=== PATIENT | male | born 1995 | race African-American/Black ===

== ENCOUNTER 2018-03-22 22:26 | Inpatient (IN) | payer OTHER ==
[~2018-03-22] VITALS: Ht 185.4 cm; Wt 72.6 kg
[2018-03-22 22:33] VITALS: BP 112/80
[2018-03-22 23:14] LABS: ABSOLUTE NEUTROPHILS 11.3 thou/uL (1.4-8.2); BASOPHILS 0.4 % (0.0-2.0); EOSINOPHILS 0.1 % (0.0-3.0); HEMATOCRIT 44.4 % (42.0-52.0); HEMOGLOBIN 14.9 gm/dL (14.0-18.0); LYMPHOCYTES 15.3 % (24.0-44.0); MCH 32.1 pg (26.0-34.0); MCHC 33.6 g/dL (28.0-37.0); MCV 95.3 fL (80.0-100.0); MONOCYTES 4.3 % (1.0-8.0); PLATELET COUNT 244 thou/uL (150-400); POLYS 79.9 % (36.0-66.0); RBC 4.66 mil/uL (4.50-6.00); RDW 13.3 % (10.5-14.5); WBC 14.2 thou/uL (4.0-11.0)
[2018-03-22 23:18] LABS: CALCIUM 9.5 mg/dL (8.5-10.1); POTASSIUM 4.3 mmol/L (3.5-5.1)
[2018-03-22 23:23] LABS: ALBUMIN 4.3 g/dL (3.4-5.0); TOTAL PROTEIN 7.4 g/dL (6.4-8.2)
[2018-03-23 00:44] VITALS: BP 126/74
[2018-03-23 01:23] VITALS: BP 126/74
[2018-03-23 04:19] VITALS: BP 126/74
[2018-03-24] MEDS ORDERED: TYLENOL325 MG PO (13:00)
[2018-03-24] MEDS ORDERED: PROTONIX40 M1 PO (13:00)
[2018-03-24] MEDS ORDERED: FLAGYL500 MG PO (13:05)
[2018-03-24] MEDS ORDERED: PROBIOTIC1 EAC2 PO (13:05)
[2018-03-24] MEDS ORDERED: LEVAQUIN 750 M750 MG PO (13:05)
[2018-03-24] MEDS ORDERED: WORK RELEASE (13:26)
== END 2018-03-23 01:54 | disposition left against medical advice (07) | DRG 392 ==
LOC: ER 22:26 → EROBS 03-23 00:34 → 2N 03-23 01:16
PROVIDERS: Emergency Medicine
DX: K52.9 Noninfective gastroenteritis and colitis, unspecified (principal); K92.0 Hematemesis; K20.9 Esophagitis, unspecified; K29.70 Gastritis, unspecified, without bleeding; D72.829 Elevated white blood cell count, unspecified; Z53.21 Procedure and treatment not carried out due to patient leaving prior to being seen by health care provider; F17.210 Nicotine dependence, cigarettes, uncomplicated; Z79.899 Other long term (current) drug therapy
CPT/HCPCS: 10194

== ENCOUNTER 2018-03-23 10:12 | Inpatient (IN) | payer OTHER ==
[~2018-03-23] VITALS: Ht 182.9 cm; Wt 63.0 kg
--- NOTE | ~2018-03-23 | PATH ---
[facility] [address] [place] [address] PATHOLOGY RPT PROCEDURE Name: ESTEFANIA MUELLER Saad Room #: 451-P [facility] IN M.R.#: [id number] Admission: 03/23/18 Date of : 89 Discharge: 03/24/18 Report #: [id number] Path Case #: [id number] [facility] Accession Number: [id number] . 01 Material submitted: . PART A: DUODENUM R/O CELIAC PART B: GASTRITIS R/O H PYLORI BIOPSY PART C: DISTAL ESOPHAGUS R/O EOE BIOPSY PART D: MID ESPHAGUS R/O EOE BIOPSY . 01 Clinical history: . Pre-OP DX: Abnormal CT scan Post-OP DX: Gastritis, esophagitis . 02 Diagnosis: A. Small bowel mucosa, duodenum, rule out celiac, endoscopic biopsy: - No diagnostic abnormalities present. - Negative for villous blunting or increase in intraepithelial lymphocytes. . B. Gastric mucosa, gastritis, rule out H. pylori, endoscopic biopsy: - Mild reactive gastropathy with focal active gastritis. - Negative for intestinal metaplasia or atrophy. - Negative for Helicobacter pylori (properly controlled immunohistochemical stain performed). . C. Gastroesophageal mucosa, distal esophagus rule out eosinophilic esophagitis, endoscopic biopsy: - Squamous epithelium with mild esophagitis and rare eosinophils (1 to 2/hpf) changes compatible with reflux esophagitis. - Gastric cardia-type mucosa with moderate dense chronic inflammation. - Negative for intestinal metaplasia or dysplasia. . D. Squamous mucosa, mid esophagus, rule out eosinophilic esophagitis, endoscopic biopsy: - Mild esophagitis with rare intraepithelial eosinophils present (4/hpf) and changes compatible with reflux esophagitis. - Negative for intestinal metaplasia or dysplasia. (IUV:pit 03/25/2018) QTP/03/25/2018 . 02 Electronically signed: . Rosa Vee MD, Pathologist NPI- [id number] . 01 Gross description: . A. Received in formalin labeled "Estefania Mueller duodenum BX, [place] [address] PATHOLOGY RPT PROCEDURE Name: ESTEFANIA MUELLER Room #: 451-P DIS IN M.R.#: [id number] Admission: 03/23/18 Date of : 89 Discharge: 03/24/18 Report #: [id number] Path Case #: [id number] celiac," are 2 segments of kim soft tissue measuring 0.7 x 0.2 x 0.2 cm in aggregate dimensions and ranging from 0.3 to 0.4 cm in maximum dimension. The specimen is submitted entirely in cassette A1. . B. Received in formalin labeled "Estefania Mueller, gastritis BX, rule out H. pylori," are 2 segments of kim soft tissue measuring 0.7 x 0.2 x 0.2 cm in aggregate dimensions and ranging from 0.3 to 0.4 cm in maximum dimension. The specimen is submitted entirely in cassette B1. . C. Received in formalin labeled "Estefania Mueller, distal esophagus BX, rule out EOE," are 2 segments of kim soft tissue measuring 0.7 x 0.2 x 0.1 cm in aggregate dimensions and ranging from 0.2 to 0.5 cm in maximum dimension. The specimen is submitted entirely in cassette C1. . D. Received in formalin labeled "Estefania Mueller, mid esophagus BX, rule out EOE," is a single segment of kim soft tissue measuring 0.5 cm in maximum dimension. The specimen is submitted entirely in cassette D1. (TSD; 03/24/2018) TOB/TOB . 02 Pathologist provided ICD-10: K31.9, K29.70, K21.0, K29.50 . 02 CPT . 563369, [id number], [id number], [id number], [id number] Performed at: [address], [place] [id number] MD Jadiel Johansen MD Phone: [phone] Performed at: [address] [id number] MD Rosa Vee MD Phone: [phone]
[2018-03-23 10:32] VITALS: BP 136/81
[2018-03-23 10:36] LABS: URINE BLOOD NEGATIVE (Negative); URINE CLARITY CLEAR; URINE COLOR YELLOW; URINE GLUCOSE-RANDOM* NEGATIVE (Negative); URINE KETONES 2+ (Negative); URINE LEUKOCYTES-REFLEX NEGATIVE (Negative); URINE NITRITE-REFLEX NEGATIVE (Negative); URINE PROTEIN (DIPSTICK) TRACE (Negative); URINE UROBILINOGEN 0.2 E.U./dl (0.2-1.0)
[2018-03-23 10:41] LABS: ICTOTEST (BILI CONFIRMATORY) Negative (Negative); URINE BILIRUBIN NEGATIVE (Negative)
[2018-03-23 11:14] LABS: ABSOLUTE NEUTROPHILS 10.7 thou/uL (1.4-8.2); BASOPHILS 0.4 % (0.0-2.0); EOSINOPHILS 0.2 % (0.0-3.0); HEMATOCRIT 41.1 % (42.0-52.0); LYMPHOCYTES 15.4 % (24.0-44.0); MCH 32.3 pg (26.0-34.0); MCHC 33.9 g/dL (28.0-37.0); MCV 95.3 fL (80.0-100.0); MONOCYTES 6.8 % (1.0-8.0); PLATELET COUNT 217 thou/uL (150-400); POLYS 77.2 % (36.0-66.0); RBC 4.32 mil/uL (4.50-6.00); RDW 13.3 % (10.5-14.5); WBC 13.8 thou/uL (4.0-11.0)
[2018-03-23 11:27] LABS: CALCIUM 9.1 mg/dL (8.5-10.1); CREATININE 1.1 mg/dL (0.7-1.3); POTASSIUM 4.5 mmol/L (3.5-5.1)
[2018-03-23 11:30] LABS: ALBUMIN 3.9 g/dL (3.4-5.0); TOTAL BILIRUBIN 2.3 mg/dL (<0.1-1.0)
[2018-03-23 14:11] LABS: AMP/METHAMP Negative (Negative); BARBITURATES Negative (Negative); BENZODIAZEPINES Negative (Negative); COCAINE Negative (Negative); METHADONE Negative (Negative); OPIATES POSITIVE (Negative); PCP Negative (Negative)
[2018-03-23 17:53] VITALS: BP 115/54
[2018-03-23 19:06] VITALS: BP 122/72
[2018-03-23 23:53] VITALS: BP 136/73
[2018-03-24 04:11] VITALS: BP 138/73
[2018-03-24 07:05] LABS: ABSOLUTE NEUTROPHILS 10.3 thou/uL (1.4-8.2); BASOPHILS 0.2 % (0.0-2.0); EOSINOPHILS 0.5 % (0.0-3.0); HEMATOCRIT 41.6 % (42.0-52.0); HEMOGLOBIN 13.8 gm/dL (14.0-18.0); LYMPHOCYTES 13.2 % (24.0-44.0); MCH 31.8 pg (26.0-34.0); MCHC 33.1 g/dL (28.0-37.0); MONOCYTES 7.3 % (1.0-8.0); PLATELET COUNT 215 thou/uL (150-400); POLYS 78.8 % (36.0-66.0); RBC 4.33 mil/uL (4.50-6.00); RDW 13.2 % (10.5-14.5); WBC 13.1 thou/uL (4.0-11.0)
[2018-03-24 07:24] LABS: ALBUMIN 3.6 g/dL (3.4-5.0); CALCIUM 8.9 mg/dL (8.5-10.1); CREATININE 1.1 mg/dL (0.7-1.3); MAGNESIUM 1.7 mg/dL (1.8-2.4); POTASSIUM 3.7 mmol/L (3.5-5.1); TOTAL BILIRUBIN 2.5 mg/dL (<0.1-1.0); TOTAL PROTEIN 6.5 g/dL (6.4-8.2)
[2018-03-24] MEDS ORDERED: TYLENOL325 MG PO (13:00)
[2018-03-24] MEDS ORDERED: PROTONIX40 M1 PO (13:00)
[2018-03-24] MEDS ORDERED: PROBIOTIC1 EAC2 PO (13:05)
[2018-03-24] MEDS ORDERED: FLAGYL500 MG PO (13:05)
[2018-03-24] MEDS ORDERED: LEVAQUIN 750 M750 MG PO (13:05)
[2018-03-24 13:06] VITALS: BP 138/73
[2018-03-24] MEDS ORDERED: WORK RELEASE (13:26)
== END 2018-03-24 13:33 | disposition home or self-care (01) | DRG 392 ==
LOC: ER 10:12 → EROBS 11:53 → 4W 11:53
PROVIDERS: Nurse Practitioner; Physician Assistant
PROC: 0DB68ZX Excision of Stomach, Via Natural or Artificial Opening Endoscopic, Diagnostic (ICD-10-PCS; principal; 2018-03-23)
PROC: 0DB58ZX Excision of Esophagus, Via Natural or Artificial Opening Endoscopic, Diagnostic (ICD-10-PCS; principal; 2018-03-23)
PROC: 0DB98ZX Excision of Duodenum, Via Natural or Artificial Opening Endoscopic, Diagnostic (ICD-10-PCS; principal; 2018-03-23)
DX: K52.9 Noninfective gastroenteritis and colitis, unspecified (principal); K92.0 Hematemesis; K29.70 Gastritis, unspecified, without bleeding; K20.9 Esophagitis, unspecified; K44.9 Diaphragmatic hernia without obstruction or gangrene; K20.0 Eosinophilic esophagitis; E86.0 Dehydration; F12.90 Cannabis use, unspecified, uncomplicated; F17.210 Nicotine dependence, cigarettes, uncomplicated; Z79.899 Other long term (current) drug therapy
CPT/HCPCS: 10040; 62110; 62900